=== PATIENT | male | born 1950 ===

== ENCOUNTER 2025-01-25 13:01 | Day surgery (SDC) | payer OTHER ==
[~2025-01-25] VITALS: Ht 175.3 cm; Wt 86.7 kg
[~2025-01-25 13:01] MED LIST: Balanced Salt Epinephrine Irrigation Solution 500 mL IR SCH; Lidocaine HCl/Pf 1% 5 ML VIAL XX SCH; Moxifloxacin HCL 0.5 MG/0.1 ML 0.4MLSYR RIGHTEYE SCH; PHENYLEPHRINE\\TROPICAMIDE\\TETRACAINE OPHTHALMIC DILATING SOLN RIGHTEYE PRN; Povidone-Iodine 450 DROP/30 ML Solution ONE; Povidone-Iodine 450 DROP/30 ML Solution RIGHTEYE SCH; Tetracaine HCl/Pf 0.5% Opth Soln 4 ml ONE; Triamcinolone Inj Susp 40 MG / ML 1ML Vial INJ SCH; Triamcinolone Inj Susp 40 MG / ML 1ML Vial ONE
[2025-01-25] MEDS ORDERED: NS 500 ML IV ONE (13:49)
[2025-01-25] MEDS ORDERED: Midazolam HCl 1MG / ML 2ML Vial ONE (14:25)
[2025-01-25] MEDS ORDERED: FentaNYL Citrate 50 MCG/ML 2 ML Injection ONE (14:25)
--- NOTE | 2025-01-25 15:16 | NUR ---
01/25/25 1516 Naz Garza INSTRUCTED SON TO PULL CAR UP TO PATIENT PRODUCTION OR [employer]ANT [employer] AREA.
== END 2025-01-25 15:16 | disposition home or self-care (01) ==
LOC: ORSCSDS 13:01
PROVIDERS: Ophthalmology
PROC: 08RJ3JZ Replacement of Right Lens with Synthetic Substitute, Percutaneous Approach (ICD-10-PCS; principal; 2025-01-25 14:30)
DX: H25.813 Combined forms of age-related cataract, bilateral (principal)
CPT/HCPCS: J2250; J3010; J3301; J7040; V2632